=== PATIENT | male | born 1965 | race Caucasian/White ===

== ENCOUNTER → 2016-12-16 | Outpatient (CLI) | payer MEDICARE, MEDICAID ==
[~2016-12-16] MED LIST: CELEBREX100 MG PO; CELEBREX200 MG PO; FLEXERIL10 MG PO; HEPARIN5000 UNIT/ SUB-Q; MS CONTIN15 MG PO; OXYCONTIN EXTEN20 MG PO; PERCOCET 5-3251 EACH PO; REQUIP0.5 MG PO; ROPINIROLE PO; TOPAMAX25 MG PO; TOPAMAX50 MG PO; VITAMIN B-121000 MCG PO; VITAMIN B122500 MCG PO; VITAMIN D-32000 UNIT PO; VITAMIN D1000 UNIT PO; ZANAFLEX4 MG PO
== END | disposition disaster alternative care site (69) ==
LOC: GRAD 12:53
DX: M54.16 Radiculopathy, lumbar region (principal); M54.9 Dorsalgia, unspecified; M41.9 Scoliosis, unspecified; R20.9 Unspecified disturbances of skin sensation

== ENCOUNTER → 2016-12-23 | Outpatient (CLI) | payer MEDICARE, MEDICAID | END | disposition disaster alternative care site (69) | LOC: GRAD 13:15 | DX: M54.16 Radiculopathy, lumbar region (principal); M47.27 Other spondylosis with radiculopathy, lumbosacral region; M51.14 Intervertebral disc disorders with radiculopathy, thoracic region; M40.205 Unspecified kyphosis, thoracolumbar region; M54.9 Dorsalgia, unspecified; R20.9 Unspecified disturbances of skin sensation ==

== ENCOUNTER → 2017-04-28 | Outpatient (CLI) | payer MEDICARE, MEDICAID | END | disposition disaster alternative care site (69) | LOC: GRAD 10:03 | DX: M54.9 Dorsalgia, unspecified (principal); M96.1 Postlaminectomy syndrome, not elsewhere classified; M41.9 Scoliosis, unspecified; M43.06 Spondylolysis, lumbar region; Z98.890 Other specified postprocedural states ==